=== PATIENT | female | born 1965 | race Caucasian/White ===

== ENCOUNTER 2018-11-22 06:56 | Emergency (ER) | payer MEDICAID ==
[~2018-11-22] VITALS: Ht 167.6 cm; Wt 66.4 kg
[2018-11-22 09:52] VITALS: BP 126/90
== END 2018-11-22 09:49 | disposition home or self-care (01) ==
LOC: ER 06:56
DX: Z46.89 Encounter for fitting and adjustment of other specified devices (principal); S62.101A Fracture of unspecified carpal bone, right wrist, initial encounter for closed fracture; F41.1 Generalized anxiety disorder; X58.XXXA Exposure to other specified factors, initial encounter; Y93.9 Activity, unspecified; Y92.9 Unspecified place or not applicable
CPT/HCPCS: 29125; 99283